=== PATIENT | female | born 1975 | race Caucasian/White ===

== ENCOUNTER 2017-04-21 08:35 | Emergency (ER) | payer OTHER ==
[~2017-04-21] VITALS: Ht 157.5 cm; Wt 72.7 kg
[~2017-04-21 08:35] MED LIST: BACTRIM DS 8001 TAB PO; CLEOCIN HC150 MG/CAP PO; DOXYCYCLINE 10100 MG PO; FLEXERIL10 MG PO; LORTAB 5/500 501 TAB PO; NAPROSYN500 MG PO; NO HOME MEDICATIONS; PHENERGAN 25 TA25 MG PO
[2017-04-21 08:40] VITALS: BP 140/91; PULSE 93; TEMP 98.8
[2017-04-21] MEDS ORDERED: FLEXERIL 1010 MG/TAB PO (09:21)
[2017-04-21] MEDS ORDERED: PREDNISONE20 MG PO (09:21)
[2017-04-21] MEDS ORDERED: ULTRAM 50MG TAB50 MG PO (09:22)
== END 2017-04-21 10:05 | disposition home or self-care (01) ==
LOC: COL.ER 08:35
DX: M54.5 Low back pain (principal); M54.41 Lumbago with sciatica, right side
CPT/HCPCS: J1885; J2360

== ENCOUNTER → 2017-04-25 | Outpatient (CLI) | payer OTHER ==
[~2017-04-25] MED LIST changes: +FLEXERIL 1010 MG/TAB PO; +PREDNISONE20 MG PO; +ULTRAM 50MG TAB50 MG PO
== END ==
LOC: COL.RAD 15:06
DX: M54.5 Low back pain (principal); M79.604 Pain in right leg